=== PATIENT | female | born 1960 | race Caucasian/White ===

== ENCOUNTER → 2023-12-31 07:45 | Outpatient (BNVA) | payer MEDICARE, SELFPAY | PROVIDERS: Family Provider Specialist; PCP Physician Assistant; Referring Provider Physician Assistant; Visit Provider Specialist | DX: G35 Multiple sclerosis (principal) | CPT/HCPCS: 99204 ==

== ENCOUNTER 2025-05-12 06:34 | Emergency (ER) | payer MEDICARE, SELFPAY ==
[2025-05-12 06:36] VITALS: BP 164/80; PULSE 72; RESP 16; TEMP 36.6; O2SAT 95; BMI 25.8
--- OUTSIDE RECORDS SUMMARY | 2025-05-12 06:40 | XMS_ITS | Patient Health Record ---
Author Organization [facility] Address [address] [id number] Care Team Providers Care Building Service Worker Name Role Phone ANGUS MCFARLAND EDWARD Unavailable [phone] Alexx Orta D.O. Unavailable Unavailable Allergies Allergen (clinical drug ingredient) Drug/Non Drug Allergy documented on EMR Reaction Allergy Type Onset Date Status erythromycin ERYTHROMYCIN Unknown Drug Allergy A ctive azithromycin Zithromax Z-Long Unknown Drug Allergy Active Substance with sulfonamide structure and antibacterial mechanism of action (substance) Sulfa Antibiotics Unknown Drug Allergy Active Reason For Referral No Information Medications Medication SIG (Take, Route, Frequency, Duration) Notes Start Date End Date Status Folic Acid 1 MG 1 tablet Orally Once a day Active DULoxetine HCl 60 MG 1 capsule Orally On ce a day Active Bystolic 5 MG 1 tablet Orally Once a day Active Atorvastatin Calcium 20 MG 1 tablet Oral ly Once a day Active Vitamin D3 50 MCG (1999) 1 capsule Or ally Once a day Active traMADol HCl 50 MG 1 tablet as needed O rally Once a day Active oxyBUTYnin Chloride 5 MG 1 tablet Orally Twice a day Active Modafinil 200 MG 1 tablet in the morn ing Orally Once a day Active Lyrica 75 MG 1 capsule Orally Onc e a day Active Ibuprofen 800 MG 1 tablet with food o r milk as needed Orally Three times a day Active Social History Tobacco Use: Social History Observation Description Date Details (start date - stop date) Current Smoker NA - NA Household Question Answer Notes Marital status: active smoker Question Answer Notes Tobacco use: current smoker How many cigarettes a day do you smoke? 11-20 Alcohol Screen (Audit-C) Question Answer Notes Did you have a drink containing alcohol in the p ast year? No Points 0 Interpretation Negative Section Notes: Admin at [facility] [place] Lives alone Admin at [facility] [place] Lives alone Admin at [facility] [place] Lives alone Admin at [facility] [place] Lives alone Smoker No alcohol use Admin at [facility] [place] Lives alone Smoker No alcohol use Admin at [facility] [place] Lives alone Admin at [facility] [place] Lives alone Smoker Alcohol use none Admin at [facility] [place] Lives alone Smoker No alcohol use Admin at [facility] [place] Lives alone Smoker No alcohol use Admin at [facility] [place] Lives alone Smoker No alcohol use Admin at [facility] [place] Lives alone Smoker No alcohol use Admin at [facility] [place] Lives alone Smoker No alcohol use Admin at [facility] [place] Lives alone Smoker No alcohol use Admin at [facility] [place] Lives alone Smoker No alcohol use Admin at [facility] [place] Lives alone Smoker No alcohol use Admin at [facility] [place] Lives alone Smoker No alcohol use Admin at [facility] [place] Lives alone Smoker No alcohol use Admin at [facility] [place] Lives alone Smoker No alcohol use Problems Problem Type SNOMED Code ICD Code Onset Dates Problem Status W/U Status Risk Notes Problem Multiple sclerosis (27320334) Multiple sclerosis (G35) Active confirmed Problem Localized, primary osteoarthritis of the pelvic region and thigh (494275632) Unilateral primary osteoarthritis , left hip (M16.12) Active confirmed Problem Hypovolemia (finding) (056568783) Volume depletion (E86.9) Active confirmed Plan Of Treatment No Information Insurance Providers Payer Name Payer Address Payer Phone Subscriber Number Group Number Insured Name Patient Relationship to Insured Coverage Start Date Coverage End Date [facility] [address] [address] [place] [address] [id number] Misti Lenz Self - patient is the insured Copay Assist - [employer] [facility] [address] [place], AAKASH [phone] Misti Lenz Self - patient is the insured Medical (General) History Medical History History ICD Code Multiple sclerosis G35 Unilateral primary osteoarthritis, left hip M16.12 Surgical History Surgery Date(Month/Year) Left Wrist Break w/ metal insert 2014 Hospitalization History Reason Date(Month/Year) as seen above
--- OUTSIDE RECORDS SUMMARY | 2025-05-12 06:40 | XMS_ITS | Patient Health Record ---
Author Organization [facility] Address [address] [place] [address] Care Team Providers Care Pen Rider Name Role Phone Harshal Brown Primary Care Provider Allergies Allergen (clinical drug ingredient) Drug/Non Drug Allergy documented on EMR Reaction Allergy Type Onset Date Status Substance with sulfonamide structure and antibacterial mechanism of action (substance) Sulfa (uncoded) hives Allergy Active azithromycin Z-Long (uncoded) unknown Allergy A ctive azithromycin Azithromycin elongated QT interval Drug Allergy Active Reason For Referral No Information Medications Medication SIG (Take, Route, Frequency, Duration) Notes Start Date End Date Status Multivitamin Adults 50+ - Orally Active Tecfidera 240 MG 1 capsule Orally Twi ce a day Active buPROPion HCl ER (XL) 300 MG 1 tablet in the morning Orally Once a day; Duration: 90 days Active Lyrica 75 MG 1 capsule in the afternoon Orally Twice a day; Duration: 90 days Active Atorvastatin Calcium 20 MG 1 tablet Orally Once a day; Duration: 90 days 10/21/2018 Active Celecoxib 200 MG 1 capsule with food Orally Once a day Not-Taking L-Lysine HCl 1000 MG 1 tablet Orally Onc e a day Not-Taking Modafinil 100 MG 1 tablet in the morn ing Orally Once a day Active Cymbalta 60 MG 1 capsule Orally Onc e a day; Duration: 30 day(s) 10/21/2018 Active Cymbalta 30 MG 1 capsule daily for initial 7 days of therapy Orally Once a day; Duration: 7 days 10/21/2018 Active Immunizations Vaccine Route Administration Date Status Comme nts Prevnar 13 IM Intramuscular 10/21/2018 Administered [id number] Social History Tobacco Use: Social History Observation Description Date Details (start date - stop date) Current Smoker NA - NA Alcohol Screening: Question Answer Notes Did you have a drink contain ing alcohol in the past year? Yes How often did you have a dri nk containing alcohol in the past year? Monthly or less (1 point) How many drinks did you have on a typical day when you were drinking in the past year? 1 or 2 (0 points) How often did you have six o r more drinks on one occasion in the past year? Never (0 points) Points 1 Interpretation Negative Tobacco: Question Answer Notes Are you a: current smoker How often do you smoke cigarettes? (current smok er) every day Problems Problem Type SNOMED Code ICD Code Onset Dates Problem Status W/U Status Risk Notes Problem Depression (720880980) Depression (F32.9) Active confirmed Problem Hypertension (21702482) Hypertension (I10) Active confirmed Problem Vitamin D deficiency (09986235) Vitamin D deficiency (E55.9) Active confirmed Problem Multiple sclerosis (47812882) Multiple sclerosis (G35) Active confirmed Problem Obesity (632942284) Obesity (BMI 30-39.9) (E66.9) Active confirmed Problem Dyslipidemia (659905759) Dyslipidemia (E78.5) Active confirmed Problem Lesion of vulva (463748768) Vulvar lesion (N90.89) Active confirmed Problem Cervicovaginal cytology: Low grade squamous intraepithelial lesion (677157325) Low grade squamous intraepithelial lesion on cytologic smear of cervix (LGSIL) (R87.612) Active confirmed Problem Human papillomavirus infection (482880956) HPV (human papilloma virus) infection (B97.7) Active confirmed Problem Anogenital human papilloma virus infection (166473444) HPV (human papilloma virus) anogenital infection (A63.0) Active confirmed Problem Tobacco user (717564487) Tobacco dependence due to cigarettes (F17.210) Active confirmed Problem Osteoarthritis of hip (579135903) Osteoarthritis of hip, unspecified laterality, unspecified osteoarthritis type (M16.9) Active confirmed Problem Panic disorder (154118890) Severe anxiety with panic (F41.0) Active confirmed Plan Of Treatment No Information Insurance Providers Payer Name Payer Address Payer Phone Subscriber Number Group Number Insured Name Patient Relationship to Insured Coverage Start Date Coverage End Date [employer] [facility] [address] [address] [place] [phone] [id number] Misti Lenz Self - patient is the insured 9 Medical (General) History Medical History History ICD Code Multiple sclerosis G35 Hypertension I10 Depression F32.9 Neck pain Sciatica Lt Hip pain Broken bones Surgical History Surgery Date(Month/Year) Left wrist 2014 Hospitalization History Reason Date(Month/Year) Rhett Gross - IV Steroids for MS 8
--- OUTSIDE RECORDS SUMMARY | 2025-05-12 06:41 | XMS_ITS | Patient Health Record ---
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 Role Phone CLARA HENAO Primary Care Provider Unavaila Clara Cross Unavailable [phone] JermainJake Unavailable [phone] Angelia Graf Unavailable Allergies Allergen (clinical drug ingredient) Drug/Non Drug Allergy documented on EMR Reaction Allergy Type Onset Date Status erythromycin Erythromycin Unknown Drug Allergy A ctive Substance with sulfonamide structure and antibacterial mechanism of action (substance) Sulfa Antibiotics Unknown Drug Allergy Active Results Component Value Reference Range Flag Notes Lumbosacral Spine Comp AP/La t w/ Obl-[id number] Reviewed date:02/08/2025 10:25:25 AM Interpretation: Performing Lab: Notes/Report: [id number]=iSite IH Lumbosacral Spine AP/Lat - [id number] Reviewed date:09/17/2024 10:07:59 AM Interpretation: Performing Lab: Notes/Report: The report for this exam was dictated at [facility] . FINAL REPORT Hip 2-3 View Uni Left-[id number] Reviewed date:09/17/2024 10:07:59 AM Interpretation: Performing Lab: Notes/Report: The report for this exam was dictated at [facility] . FINAL REPORT Read The report for this exam was dictated at [facility] . IH Lumbosacral Spine AP/Lat - 33802 Reviewed date:09/17/2024 10:08:22 AM Interpretation: Performing Lab: Notes/Report: [id number]&[email or web address]=iSite MRI Lumbar Spine w/o Cont-72 148 Reviewed date:11/05/2024 08:00:09 AM Interpretation: Performing Lab: Notes/Report: See Below For Report MRI Lumbar Spine w/o Cont Diagnosis Description: Spondylolisthesis, lumbar region Read See Below For Report Schedule Confirmation Reviewed date:09/30/2024 04:58:30 PM Interpretation: Performing Lab: Notes/Report: MRI Lumbar Spine w/o Cont IH Lumbosacral Spine Comp AP /Lat w/ Obl - [id number] Reviewed date:02/01/2025 07:30:40 AM Interpretation: Performing Lab: Notes/Report: See Below For Report Lumbosacral Spine Comp AP/Lat w/ Obl Urine Confirmation Panel (in strument) - [id number] Reviewed date:12/27/2024 02:44:53 PM Interpretation: Performing Lab: Notes/Report: 6-Acetylmorphine 0 <6 ng/mL N This sun t was developed and its performance characteristics determined by [facility]. It has not been cleared or approved by the U.S. Food and Drug Administration. 7-Aminoclonazepam 0 <60 ng/mL N This te st was developed and its performance characteristics determined by [facility]. It has not been cleared or approved by the U.S. Food and Drug Administration. Alprazolam 0 <60 ng/mL N This test was developed and its performance characteristics determined by [facility]. It has not been cleared or approved by the U.S. Food and Drug Administration. Amphetamine 0 <75 ng/mL N This test was developed and its performance characteristics determined by [facility]. It has not been cleared or approved by the U.S. Food and Drug Administration. aOH-Alprazolam 0 <60 ng/mL N This test was developed and its performance characteristics determined by [facility]. It has not been cleared or approved by the U.S. Food and Drug Administration. Buprenorphine 0.0 <7.5 ng/mL N This test w as developed and its performance characteristics determined by [facility]. It has not been cleared or approved by the U.S. Food and Drug Administration. Norbuprenorphine 0.0 <37.5 ng/mL N This te st was developed and its performance characteristics determined by [facility]. It has not been cleared or approved by the U.S. Food and Drug Administration. Carisoprodol 0 <75 ng/mL N This test wa s developed and its performance characteristics determined by [facility]. It has not been cleared or approved by the U.S. Food and Drug Administration. Codeine 0 <75 ng/mL N This test was developed and its performance characteristics determined by [facility]. It has not been cleared or approved by the U.S. Food and Drug Administration. EDDP 0 <75 ng/mL N This test was developed and its performance characteristics determined by [facility]. It has not been cleared or approved by the U.S. Food and Drug Administration. Fentanyl 0 <6 ng/mL N This test was developed and its performance characteristics determined by [facility]. It has not been cleared or approved by the U.S. Food and Drug Administration. Hydrocodone 68 <75 ng/mL N This test was developed and its performance characteristics determined by [facility]. It has not been cleared or approved by the U.S. Food and Drug Administration. Hydromorphone 75 <75 ng/mL H This test w as developed and its performance characteristics determined by [facility]. It has not been cleared or approved by the U.S. Food and Drug Administration. Lorazepam 0 <60 ng/mL N This test was developed and its performance characteristics determined by [facility]. It has not been cleared or approved by the U.S. Food and Drug Administration. MDMA 0 <75 ng/mL N This test was developed and its performance characteristics determined by [facility]. It has not been cleared or approved by the U.S. Food and Drug Administration. Meperidine 0.0 <37.5 ng/mL N This test was developed and its performance characteristics determined by [facility]. It has not been cleared or approved by the U.S. Food and Drug Administration. Meprobamate 0 <75 ng/mL N This test was developed and its performance characteristics determined by [facility]. It has not been cleared or approved by the U.S. Food and Drug Administration. Methamphetamine 0 <75 ng/mL N This test was developed and its performance characteristics determined by [facility]. It has not been cleared or approved by the U.S. Food and Drug Administration. Methadone 3 <75 ng/mL N This test was developed and its performance characteristics determined by [facility]. It has not been cleared or approved by the U.S. Food and Drug Administration. Morphine 0 <75 ng/mL N This test was developed and its performance characteristics determined by [facility]. It has not been cleared or approved by the U.S. Food and Drug Administration. Nordiazepam 0 <60 ng/mL N This test was developed and its performance characteristics determined by [facility]. It has not been cleared or approved by the U.S. Food and Drug Administration. Norfentanyl 0 <6 ng/mL N This test was developed and its performance characteristics determined by [facility]. It has not been cleared or approved by the U.S. Food and Drug Administration. Normeperidine 0.0 <37.5 ng/mL N This test was developed and its performance characteristics determined by [facility]. It has not been cleared or approved by the U.S. Food and Drug Administration. O-desmethyltramadol >5000 <75 ng/mL > This test was developed and its performance characteristics determined by [facility]. It has not been cleared or approved by the U.S. Food and Drug Administration. Oxazepam 0 <60 ng/mL N This test was developed and its performance characteristics determined by [facility]. It has not been cleared or approved by the U.S. Food and Drug Administration. Oxycodone 0.0 <37.5 ng/mL N This test was developed and its performance characteristics determined by [facility]. It has not been cleared or approved by the U.S. Food and Drug Administration. Oxymorphone 0 <75 ng/mL N This test was developed and its performance characteristics determined by [facility]. It has not been cleared or approved by the U.S. Food and Drug Administration. Phencyclidine 0.0 <7.5 ng/mL N This test w as developed and its performance characteristics determined by [facility]. It has not been cleared or approved by the U.S. Food and Drug Administration. Tapentadol 0.0 <37.5 ng/mL N This test was developed and its performance characteristics determined by [facility]. It has not been cleared or approved by the U.S. Food and Drug Administration. Temazepam 0 <60 ng/mL N This test was developed and its performance characteristics determined by [facility]. It has not been cleared or approved by the U.S. Food and Drug Administration. Tramadol >5000 <75 ng/mL > This test was developed and its performance characteristics determined by [facility]. It has not been cleared or approved by the U.S. Food and Drug Administration. Norhydrocodone 192 <75 ng/mL H This test was developed and its performance characteristics determined by [facility]. It has not been cleared or approved by the U.S. Food and Drug Administration. Noroxycodone 0 <38 ng/mL N This test wa s developed and its performance characteristics determined by [facility]. It has not been cleared or approved by the U.S. Food and Drug Administration. Pregabalin 0 <225 ng/mL N This test was developed and its performance characteristics determined by [facility]. It has not been cleared or approved by the U.S. Food and Drug Administration. Gabapentin >46497 <225 ng/mL > This test was developed and its performance characteristics determined by [facility]. It has not been cleared or approved by the U.S. Food and Drug Administration. Benzoylecgonine 0.0 <37.5 ng/mL N This sun t was developed and its performance characteristics determined by [facility]. It has not been cleared or approved by the U.S. Food and Drug Administration. 4-Hydroxy Xylazine 7 <25 ng/mL N This t est was developed and its performance characteristics determined by [facility]. It has not been cleared or approved by the U.S. Food and Drug Administration. Urine Drug Screen (cup read) - 52763 Reviewed date:12/21/2024 09:49:59 AM Interpretation:Positive Performing Lab: Notes/Report: Positive OPI + MRI Lumbar Spine w/o Cont-72 148 Reviewed date:11/05/2024 08:02:07 AM Interpretation: Performing Lab: Notes/Report: [id number]=iSite CRP 79799 Reviewed date:09/17/2024 10:13:03 AM Interpretation: Performing Lab: Notes/Report: Diagnosis Description: Pain in left hip CRP <.50 .40-1.00 MG/DL Sedimentation Rate 99177 Reviewed date:09/17/2024 10:13:11 AM Interpretation: Performing Lab: Notes/Report: Diagnosis Description: Pain in left hip Sed Rate 3 0-30 MM/HR CBC w\ Auto Diff 93919 Reviewed date:09/17/2024 10:13:19 AM Interpretation: Performing Lab: Notes/Report: Diagnosis Description: Pain in left hip WBC 4.1 4.5-11.0 X10'3 LOW RBC 4.82 4.00-5.20 X10'6 Hgb 13.6 12.0-16.0 G/DL Hct 40.8 36.0-46.0 % MCV 84.6 80.0-100.0 FL MCH 28.2 27.0-31.0 PG MCHC 33.3 31.0-37.0 G/DL Platelet 238 150-400 X10'3 RDW-SD 40.4 35.0-49.0 FL RDW-CV 13.1 12.2-15.6 % MPV 8.9 9.2-12.0 FL LOW Neutro Auto% 68.8 40.0-70.0 % Lymph Auto% 18.8 22.0-44.0 % LOW Waller Auto% 7.0 3.0-7.0 % Eos Auto% 3.9 2.0-4.0 % Baso Auto% 1.0 0.0-1.0 % Imm Gran% .5 .0-.4 % HI Neutro Abs 2.85 .80-7.70 Absolute Neutrophil Count 2850 NA Lymph Abs .78 .10-4.10 Waller Abs .29 .20-1.00 Eos Abs .16 .00-.40 Baso Abs .04 .00-.20 Imm Gran Abs .02 .00-.10 NRBC# .00 .00-.20 X10'3 NRBC% .00 .00-.20 /100 intact WBC's Hip 2-3 View Uni Left-[id number] Reviewed date:06/21/2024 10:47:25 AM Interpretation: Performing Lab: Notes/Report: [id number]=iSite Tox Results Reviewed date:12/27/2024 02:49:35 PM Interpretation: Performing Lab: Notes/Report: Hip 2-3 View Uni Left-[id number] Reviewed date:06/21/2024 10:47:18 AM Interpretation: Performing Lab: Notes/Report: The report for this exam was dictated at [facility] . FINAL REPORT Read The report for this exam was dictated at [facility] . Schedule Confirmation Reviewed date:11/05/2024 08:00:16 AM Interpretation: Performing Lab: Notes/Report: MRI Lumbar Spine w/o Cont Hip 2-3 View Uni Left-[id number] Reviewed date:09/17/2024 10:08:41 AM Interpretation: Performing Lab: Notes/Report: [id number]=iSite Schedule Confirmation Reviewed date:09/27/2024 09:04:19 AM Interpretation: Performing Lab: Notes/Report: MRI Lumbar Spine w/o Cont Schedule Confirmation Reviewed date:09/24/2024 11:36:49 AM Interpretation: Performing Lab: Notes/Report: MRI Lumbar Spine w/o Cont Lipid Panel Reflex DLDL 8000 4, 83929 Reviewed date:11/22/2024 02:06:38 PM Interpretation: Performing Lab: Notes/Report: Diagnosis Description: Essential (primary) hypertension Trig 87 NA Classification Guidelines:Triglyceride s Very high >=500 5-9 yr 32-105 10-14 yr 37-131 0-4 yr 22-99 Children: Female Desirable <150 15-19 yr 39-132 High 200-499 0-4 yr 34-112 15-19 yr 37-148 Borderline High 150-199 Adults: >20yrs Children: Male 5-9 yr 30-101 10-14 yr 32-125 Chol 247 <=200 MG/DL HI HDL 75 39-96 MG/DL 10-14y 37-74 15-19y 35-74 Female: Reference Ranges:HDL Male: 15-19y 30-63 >=20y 40-59 5-9y 36-73 5-9y 38-75 10-14y 37-70 >=20y 40-59 CH/HDL 3.3 0.0-4.9 RATIO LDL 155 0-130 MG/DL HI LDL result is inaccurate , if Trig is >400 mg/dl. See DLDL result. Reason For Referral Reason Epidural steroid inj ection Diagnosis 1 Spinal stenosis, lum bar region with neurogenic claudication (M48.062) Referring Provider First Name Jake Referring Provider Last Name Jermain Referring Provider Speciality Orthopedic Surgery Referred Organization [facility] Referred Provider Nicki Graf Referred Address [address],[facility],[place],[address],[place] General Notes Nicolasa Yu 2024 09:30:35 AM >Order entered, Nicolasa Yu 11/08/2024 03:06:57 PM >ATC VM left. , Order approved, Nicolasa Yu 11/19/2024 09:22:04 AM >ATS , VM LEFT., Nicolasa Yu 12/10/2024 02:53:28 PM >asked for OV before injection. Scheduled Referral Priority Routine Reason Epidural steroid inj ection Diagnosis 1 Spinal stenosis, lum bar region with neurogenic claudication (M48.062) Referral Organization [facility] Referring Provider First Name Jake Referring Provider Last Name Jermain Referring Provider Speciality Orthopedic Surgery Referred Provider Nicki Graf Referral Priority Routine Reason Pt for LS radiculopa thy evaluate and treat Diagnosis 1 Lumbosacral radiculo haven (M54.17) Referral Organization [facility] Referring Provider First Name Angelia Referring Provider Last Name Payal Perez Referring Provider Speciality Pain Medic ine Referred Provider [facility] [place] Referral Priority Routine Medications Medication SIG (Take, Route, Frequency, Duration) Notes Start Date End Date Status traMADol HCl 50 MG Tablet 1 tablet as ne eded Orally every 8 hours; Duration: 30 days 04/18/2025 Active Ibuprofen 200 MG Tablet 1 tablet with fo od or milk as needed Orally Three times a day Active Multi Vitamin Unknow n Lisinopril 40 MG Tablet TAKE 1 TABLET BY MOUTH DAILY; Duration: 90 Active Spironolactone 25 MG Tablet 1 tablet Orally Unknown - Active Dimethyl Fumarate 240 MG Capsule Delayed Release 1 capsule Orally Twice a day Active Vitamin D 50 MCG (1999 UT) Tablet 1 tablet Orally Once a day Unknown LORazepam 2 MG Tablet Take 1 tablet 1 ho ur before MRI scan Orally Once a day; Duration: 1 days 09/14/2024 Active Vitamin B Complex Un known Ferrous Gluconate 324 (38 Fe) MG Tablet 1 tablet Orally Three times a Week Active Gabapentin 300 MG Capsule 1 capsule Oral ly Once a day; Duration: 30 days 11/10/2024 Active DULoxetine HCl 30 MG Capsule Delayed Release Particles 1 capsule Orally Once a day; Duration: 90 days Active Famotidine 20 MG Tablet 1 tablet at bedt mitesh as needed Orally Once a day Active Magnesium Unknown Social History Tobacco Use: Social History Observation Description Date Details (start date - stop date) Current Smoker NA - NA Social History Depression Screening Social Info Question Answer Notes PHQ-9 Little interest or pleasure in doing thin gs Several days Feeling down, depressed, or hopeless Several day s Trouble falling or staying asleep, or sleeping t oo much Not at all Feeling tired or having little energy Several da ys Poor appetite or overeating Not at all Feeling bad about yourself, or that you are a failure, or have let yourself or your family down Not at all Trouble concentrating on thi ngs, such as reading the newspaper or watching television Not at all Moving or speaking so slowly that other people could have noticed. Or the opposite ? being so fidgety or restless that you have been moving around a lot more than usual Not at all Thoughts that you would be b vitaliy off , or of hurting yourself in some way Not at all Total Score 0 Comprehensive Health Assessm ent Social Info Question Answer Notes *Social Determinants of Health Has lack of transportation kept you from medical appointments, meetings, work or from getting things needed for daily living? No Do you feel physically and emotionally safe wher e you currently live? Yes Are you worried about losing your housing? No Recently, have you worried t hat your food would run out before you got money to buy more? No Drug/Alcohol: Social Info Question Answer Notes AUDIT-C (Standard) Did you have a drink containing alcohol in the past year? No Points 0 Interpretation Negative Tobacco Use: Social Info Question Answer Notes Tobacco Control (Standard) Tobacco use: Current smoker How often do you smoke cigarettes? Every day How many cigarettes a day do you smoke? 11-20 How soon after you wake up do you smoke your first cigarette? 6-30 minutes Are you interested in quitting? Not ready to quit Section Notes: 12/02/23 PHQ9 12/02/23 PHQ9 12/02/23 PHQ9 11/10/24 PHQ9 12/02/23 PHQ9 11/10/24 PHQ9 12/02/23 PHQ9 11/10/24 PHQ9 12/02/23 PHQ9 11/10/24 PHQ9 12/02/23 PHQ9 12/02/23 PHQ9 12/02/23 PHQ9 12/02/23 PHQ9 12/02/23 PHQ9 Problems Problem Type SNOMED Code ICD Code Onset Dates Problem Status W/U Status Risk Notes Problem Chronic pain syndrome (660015513) Chronic pain syndrome (G89.4) Active confirmed Problem Acquired spondylolisthesis (618110432) Spondylolisthesis, lumbar region (M43.16) Active confirmed Problem Neurogenic claudication (511786994) Spinal stenosis, lumbar region with neurogenic claudication (M48.062) Active confirmed Problem Neuropathy (890615302) Neuropathy (G62.9) Active confirmed Problem Localized, primary osteoarthritis of the pelvic region and thigh (309851104) Primary osteoarthritis of left hip (M16.12) Active confirmed Problem Vitamin D deficiency (67427507) Vitamin D deficiency (E55.9) Active confirmed Problem Arthritis of left hip (1411155177698226) Arthritis of left hip (M16.12) Active confirmed Problem Lumbosacral spondylosis without myelopathy (28436427) Spondylosis of lumbosacral region without myelopathy or radiculopathy (M47.817) Active confirmed Problem Depression (725249921) Depression (F32.9) Active confirmed Problem Myalgia (92653126) Myalgia (M79.10) Active conf irmed Problem Nicotine dependence (46938087) Nicotine dependence (F17.200) Active confirmed Problem History of left hip replacement (5310572224058449) 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) Active confirmed Problem Spondylolisthesis (613427577) Spondylolisthesis (M43.10) Active confirmed Problem Hypertension (85917825) Hypertension (I10) Active confirmed Problem Lumbosacral radiculopathy (0620634) Lumbosacral radiculopathy (M54.17) Active confirmed Problem Multiple sclerosis (17142576) MS (multiple sclerosis) (G35) Active confirmed Problem Lumbar radiculopathy (043572287) Chronic lumbar radiculopathy (M54.16) Active confirmed Problem Acquired spondylolisthesis (801944013) Anterolisthesis of lumbar spine (M43.16) Active confirmed Problem S/P total left h ip arthroplasty (Z96.642) Active confirmed Vital Signs Heart Rate 84 /min 04/18/2025 Temperature 98.1 degrees Fahrenheit 04/18/2025 Respiratory Rate 20 /min 04/18/2025 Blood pressure diastolic 80 mm Hg 04/18/2025 Oximetry 97 % 04/18/2025 Height-cm 167.64 cm 04/18/2025 Weight-kg 72.58 kg 04/18/2025 Height 66 in 04/18/2025 Blood pressure systolic 138 mm Hg 04/18/2025 Weight 160 lbs 04/18/2025 BMI 25.82 kg/m2 04/18/2025 Procedures Procedure Date Ordered Date Performed Result Body Sit e REMOVE IMPACTED EAR WAX UNI 04/18/2025 04/18/2025 N/A Encounters Encounter Location Date Provider Diagnosis [facility] [address] [place] [address] 06/17/2024 Jake Aly Status post total replacement of left hip Z96.642 [facility] [place] [address] [place] [address] 02/15/2025 Angelia walsh Chronic pain syndrome G89.4 ; Lumbosacral radiculopathy M54.17 ; Myalgia M79.10 ; Neuropathy G62.9 ; Anterolisthesis of lumbar spine M43.16 ; Spondylolisthesis M43.10 ; Encounter for long-term current use of medication Z79.899 ; Spondylosis of lumbosacral region without myelopathy or radiculopathy M47.817 and Depression screen Z13.31 [facility] [address] [place] [address] 11/04/2024 Jake Roachox Spinal stenosis, lum bar region with neurogenic claudication M48.062 [facility] [place] [address] [place] [address] 12/21/2024 Angelia walsh Chronic pain syndrome G89.4 ; Lumbosacral radiculopathy M54.17 ; Myalgia M79.10 ; Anterolisthesis of lumbar spine M43.16 ; Spondylolisthesis M43.10 ; Neuropathy G62.9 ; Encounter for long-term current use of medication Z79.899 and Spondylosis of lumbosacral region without myelopathy or radiculopathy M47.817 [facility] [address] [facility] [address] [place] [address] 11/10/2024 [facility] Chronic lumbar radiculopathy M54.16 ; Hypertension I10 ; MS (multiple sclerosis) G35 and Depression screening Z13.[address] [place] [address] 09/14/2024 Jake Aly Left hip pain M25.55 2 and Spondylolisthesis, lumbar region M43.16 [facility] [address] [facility] [address] [place] [address] 04/18/2025 [facility] Dental infection K04.7 ; Impacted cerumen of left ear H61.22 and Chronic lumbar radiculopathy M54.16 [facility] [address] [facility] [address] [place] [address] 02/10/2025 [facility] [address] [place] [address] 12/30/2024 Angelia Gooden ce [facility] [address] [place] [address] 12/22/2024 [facility] [address] [place] [address] 11/05/2024 Angelia Gooden ce Spinal stenosis, lumbar region with neurogenic claudication M48.[address] [place] [address] 10/26/2024 Jake Aly [facility] [address] [place] [address] 09/28/2024 Jake Aly [facility] [address] [place] [address] 09/24/2024 Jake Aly Assessments Encounter Date Diagnosis (ICD Code) Assessment Notes Treatment Notes Treatment Clinical Notes Section Notes 09/14/2024 Spondylolisthesis, lumbar region (ICD-10 - M43.16) MRI scan lumbar spine for further evaluation. 09/14/2024 Left hip pain (ICD-10 - M25.552) This individual has had a total hip replacement of which looks good by x-ray. I do not see any evidence of a fracture or dislocation etc. I am going to go ahead and get an inflammatory screen on her. Furthermore I am going to get an MRI scan of her lumbar spine because I think this may be the source of her pain. 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 She has a history of multiple sclerosis and had an acute radiculopathy affecting her left L4/5 nerve roots. She's gone through extensive physical therapy for core stabilization. She has complete resolution of her radiculopathy pain. She does have right sided SI mediated pain based off of the examination today. She's not interested in SI joint injections as they have not been helpful for her in the past. We reviewed her 7 mm anteriolisthesis of L4 on L5. No red flags on examination today. Strict ER precautions have been given. We trialed Lyrica 15 mg BID, but she did not notice significant benefit and had noticed some sedation that was uncomfortable during the morning. I'll see her back in six months. At that time, we can consider if we want to do an L4/5 interlaminar epidural steroid injection or a targeted L4/5 TFESI bilaterally. We'll provide her with an intramuscular Depo Medrol injection today. She has no fevers, chills, or been on antibiotics in the last three days. 02/15/2025 Lumbosacral radiculopathy (ICD-10 - M54.17) 04/18/2025 Dental infection (ICD-10 - K04.7) Encouraged to make dental apt, take medication as directed. Questions asked and answered; discharged to home. 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 She has a history of multiple sclerosis and had an acute radiculopathy affecting her left L4/5 nerve roots. She's been doing better. We'll start off with physical therapy with nerve flossing for lumbosacral radiculopathy. She does have a five mm anteriolisthesis of L4 on L5. We'll obtain flexion/extension X-rays to evaluate this as she might have some dynamic instability. There's no red flag symptoms on examination today. Strict ER precautions were given. We'll trial Lyrica 50 mg BID. She's had this before, and it was beneficial for her neuropathy. I prescribed her a Medrol dose pack if she has reaggravation of her worst symptoms in terms of her lumbosacral radiculopathy. I'll see her back in 8 weeks and if she's not improved at that time, we can recosnider her L4/5 interlaminar epidural steroid inejction or a left sided L4/5 TFESI. 04/18/2025 Impacted cerumen of left ear (ICD-10 - H61.22) 11/10/2024 Chronic lumbar radiculopathy (ICD-10 - M54.16) 11/05/2024 Spinal stenosis, lumbar region with neurogenic claudication (ICD-10 - M48.062) 11/04/2024 Spinal stenosis, lumbar region with neurogenic claudication (ICD-10 - M48.062) This individual has documented spinal stenosis from spondylolisthesis at L4-5. It is bilateral. We talked about treatment options. She would like to try an epidural steroid injection to see if it would help. I think this is reasonable. I am going to recheck in 2 months. A referral for this will be made. Furthermore I am going to renew her tramadol. This individual's prescription was just filled by her family physician yesterday on the . We will cancel the prescription for tramadol from us. 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 We will recheck in 6 months with x-rays. 12/21/2024 Lumbosacral radiculopathy (ICD-10 - M54.17) 11/10/2024 Hypertension (ICD-10 - I10) 11/10/2024 MS (multiple sclerosis) (ICD-10 - G35) Keep apts with Dr. Biswas as scheduled. 12/21/2024 Myalgia (ICD-10 - M79.10) 02/15/2025 Myalgia (ICD-10 - M79.10) 02/15/2025 Neuropathy (ICD-10 - G62.9) 04/18/2025 Chronic lumbar radiculopathy (ICD-10 - M54.16) 12/21/2024 Anterolisthesis of lumbar spine (ICD-10 - M43.16) 11/10/2024 Depression screening (ICD-10 - Z13.31) 12/21/2024 Spondylolisthesis (ICD-10 - M43.10) 02/15/2025 Anterolisthesis of lumbar spine (ICD-10 - M43.16) 02/15/2025 Spondylolisthesis (ICD-10 - M43.10) 12/21/2024 Neuropathy (ICD-10 - G62.9) 02/15/2025 Encounter for long-term current use of medication (ICD-10 - Z79.899) 12/21/2024 Encounter for long-term current use of medication (ICD-10 - Z79.899) RECOMMEND URINE TESTING TODAY Urine drug screening will be performed today to monitor compliance with opioid therapy or to serve as a baseline screen for a patient who may be a candidate for opioid therapy in the future, pending UDS results. We will monitor with in-office testing (rapid testing) today and review the results prior to dispensing prescription. All positive results will be sent for quantitative analysis to ensure accuracy and quantify amounts. Any expected positive results that return negative will also be sent for quantitative analysis. Any questionable read or any medication we cannot test for in the office confidently will be sent for quantitative analysis, as well. Patient has been made aware of this policy and agrees to abide by our urine testing policy. 02/15/2025 Spondylosis of lumbosacral region without myelopathy or radiculopathy (ICD-10 - M47.817) 12/21/2024 Spondylosis of lumbosacral region without myelopathy or radiculopathy (ICD-10 - M47.817) 02/15/2025 Depression screen (ICD-10 - Z13.31) 11/10/2024 Other Venipuncture performed. Left arm. One attempt. Pt tolerated well, bleeding controlled with light dressing.Chastity Perez DATA PROCESSING SUPERVISOR 12/21/2024 Other Meghan Navas am scribing for Dr. Islas. I, Dr. Islas, personally performed the services described in this documentation, as scribed by Meghan Blackwell, and it is both accurate and complete. 02/15/2025 Other Meghan Navas am scribing for Dr. Islas. I, Dr. Islas, personally performed the services described in this documentation, as scribed by Meghan Blackwell, and it is both accurate and complete. Plan Of Treatment Pending Test Test Name Order Date X-RAY EXAM HIP UNI 2-3 VIEW 03/23/2024 X-RAY EXAM HIP UNI 2-3 VIEW 09/14/2024 Uni Hip, Pelvis 1V 06/17/2024 Electrocardiogram 12 Lead Tracing-[id number] 02/16/2024 Next Appt Details Provider Name:Paulette Dee goodrich, 08/18/2025 10:00:00 AM, [address] [place], [address], Insurance Providers Payer Name Payer Address Payer Phone Subscriber Number Group Number Insured Name Patient Relationship to Insured Coverage Start Date Coverage End Date [place] [address] [address] [place] [address] [id number] Misti Lenz Self - patient is the insured Medications Administered Medication Instructions Date of Administration Dosage Notes DEPO-Medrol 02/15/2025 40 mg [facility] [id number] Medical (General) History Medical History History ICD Code multiple sclerosis hypertension chronic hip pain lower backpain depression Surgical History Surgery Date(Month/Year) left wrist surgery total hip arthroplasty, left 03/01/2024 Hospitalization History Reason Date(Month/Year) Infusion, [place] 2018
--- OUTSIDE RECORDS SUMMARY | 2025-05-12 06:41 | XMS_ITS | Patient Health Record ---
Author Organization [facility] Address [address] [place] [address] Care Team Providers Care Multimedia Engineer Name Role Phone Alberto Brush PA-C Primary Care Provider ALBERTO Lang Unavailable [phone] Donell FLOREZ, PhD, Alberto Unavailable Unavail able Allergies Allergen (clinical drug ingredient) Drug/Non Drug Allergy documented on EMR Reaction Allergy Type Onset Date Status erythromycin Erythromycin Unknown Drug Allergy A ctive azithromycin Azithromycin Unknown Drug Allergy A ctive Substance with sulfonamide structure and antibacterial mechanism of action (substance) Sulfa Antibiotics Unknown Drug Allergy Active Reason For Referral No Information Medications Medication SIG (Take, Route, Frequency, Duration) Notes Start Date End Date Status Atorvastatin Calcium 20 MG Oral; Duration: 90 Active Modafinil 100 MG 1 tablet in the morn ing Orally Once a day Active DULoxetine HCl 60 MG Oral; Duration: 90 Active Chantix Starting Month Long 0.5 MG X 11 & 1 MG X 42 Oral; Duration: 53 Active Bystolic 5 MG Oral; Duration: 90 Active Plan Of Treatment No Information Insurance Providers Payer Name Payer Address Payer Phone Subscriber Number Group Number Insured Name Patient Relationship to Insured Coverage Start Date Coverage [place] [address] [address] [address] [place] [address] [phone] [id number] DelfinMisti escobar Self - patient is the insured [facility] [employer] [address] [address] [place] [address] [id number] Delfin Misti Self - patient is the insured Medical (General) History Medical History History ICD Code Chronic back pain Autoimmune disorder Neuorological disorder Multiple sclerosis Hypercholesterolemia Depression Surgical History Surgery Date(Month/Year) Left wrist fracture/[facility] 2014 [place]
[2025-05-12 06:56] VITALS: BP 164/80; O2SAT 97
[2025-05-12 07:04] LABS: Hematocrit 43.4 % (36-47); Hemoglobin 14.30 g/dL (11.27-16.99); Mean Corpuscular HGB Conc 32.9 g/dL (30-55); Mean Corpuscular Hemoglobin 29.0 pg (27-33); Mean Corpuscular Volume 88.0 fl (85-98); Nucleated Red Blood Cells % 0 %; Platelet Count 258 10^3/cmm (157-399); Red Blood Count 4.93 10^6/uL (3.85-5.65); White Blood Count 8.58 10^3/uL (3.29-11.43)
--- NOTE | 2025-05-12 07:10 | ED_ITS ---
HPI - Abdominal Pain 2 General: Chief Complaint: Abdominal Pain Stated Complaint: RIGHT FLANK PAIN/ N/V Time Seen by Provider: 05/12/25 06:44 History of Present Illness: 66-year-old female presents emergency ro om right-sided flank pain with nausea difficulty urinating. She rates her pain at 3 out of 10 she is brought in by EMS. Denies any fever. Symptoms began around 1 AM this morning she denies chest pain. No diarrhea no hematochezia melena or hematemesis. Associated Symptoms: Denies chills, dysuria and fever(s) Related Data Home Medications ?Medication ?Instructions ?Recorded ?Confirmed cholecalciferol (vitamin D3) 250 250 mcg PO DAILY 12/1005/12/25 mcg (10,000 unit) capsule lisinopril 40 mg tablet 40 mg PO DAILY 12/31/2310/05 [id number] ac 400 1 tab PO DAILY 05/12/2510/05 mcg-calcium carb 500 mg-vit K1 20 mcg tablet tramadol 50 mg tablet 50 mg PO Q8H PRN Pain 05/12/25 Allergies Allergy/AdvReac Type Severity Reaction Status Date / Time No Known Allergies Allergy Unverified 12/31/23 07:55 Review of Systems 2 Const: Denies: fever(s) or chills Card: Denies: chest pain Resp: Denies: dyspnea GI: Denies: abdominal pain : Reports: flank pain and difficulty voiding; Denies: dysuria, urinary frequency or urinary urgency Musc: Denies: neck pain or back pain Skin/Breast: Denies: rash PFSH ED 2 PFSH: Social History Smoking and tobacco/nicotine status: current every day tobacco/nicotine user (about a pack a day) Physical Exam 2 Const: GENERAL APPEARANCE: cooperative ORIENTATION/CONSCIOUSNESS: Yes awake, Yes oriented to person, Yes oriented to place and Yes oriented to time HENMT: COMMON NORMALS: normocephalic, atraumatic and hearing grossly normal bilaterally HEAD & SCALP: normocephalic and atraumatic Resp: COMMON NORMALS: normal respiratory effort, No retractions, No use of accessory muscles and clear to auscultation bilaterally AUSCULTATION: clear to auscultation bilaterally Cardio: COMMON NORMALS: regular rate, regular rhythm and No murmurs present (Cardio) RATE: regular rate RHYTHM: regular rhythm GI: COMMON NORMALS: Soft to palpation and No hepatosplenomegaly present A USCULTATION: Yes normoactive bowel sounds PALPATION: Yes Soft to palpation, No Tenderness to palpation present (GI), No Guarding due to palpation present (GI) and Yes No hepatosplenomegaly present Extremity: COMMON NORMALS: normal to inspection, capillary refill normal, no clubbing, cyanosis or edema, no calf tenderness and no pedal edema Neuro: SENSORIUM/ORIENTATION: Yes oriented to person, Yes oriented to place and Yes oriented to time Skin: COMMON NORMALS: no rashes or lesions noted GENERAL SKIN EXAM: no rashes or lesions noted Course 2 Vital Signs: Vital signs: Vital Signs Temperature 98 F 05/12/25 06:36 Pulse Rate 59 L 05/12/25 11:42 Respiratory Rate 16 05/12/25 09:19 Blood Pressure 166/80 05/12/25 11:42 Pulse Oximetry 98 05/12/25 11:42 Oxygen Delivery Me thod Room Air 05/12/25 09:19 MDM - Abdominal Pain Medical Decision Making Urine shows microscopic hematuria. Imaging shows mild dilation of the ureter but no definitive stone in the ureter. Given the patient's complaint of pain the nature and character of her pain as well as the location CT findings and the urine findings of hematuria suspect she did pass a kidney stone. She is completely resolved now she is her pain is gone she feels fine. Will discharge her home. Have her strain her urine to collect the stone if she has any worsening or recurrence of pain return follow-up with her primary care doctor. Medical Records I reviewed the patient's medical records. Lab Data I reviewed the patient's lab results. 05/12/25 06:44 05/12/25 06:44 Labs/Radiology: Radiology Impressions Abdomen/Pelvis CT 05/12/25 09:56 IMPRESSION: 1. Mild dilatation of the right renal collecting system. No obstructing calculus appreciated. Findings may represent urinary tract infection. 2. Atherosclerotic plaque of the abdominal vasculature. 3. Fibroid change of the uterus. 4. Postop surgical changes left hip joint. 5. Equivocal mild wall thickening of the stomach. Incomplete distension somewhat limits evaluation Laboratory Results WBC 8.58 10^3/uL (3.29-11.43) 05/12/25 06:44 RBC 4.93 10^6/uL (3.85-5.65) 05/12/25 06:44 Hgb 14.30 g/dL (11.27-16.99) 05/12/25 06:44 Hct 43.4 % (36-47) 05/12/25 06:44 MCV 88.0 fl (85-98) 05/12/25 06:44 MCH 29.0 pg (27-33) 05/12/25 06:44 MCHC 32.9 g/dL (30-55) 05/12/25 06:44 RDW 13.5 % (12.1-15.1) 05/12/25 06:44 Plt Count 258 10^3/cmm (157-399) 05/12/25 06:44 MPV 9.9 fL (7.4-10.4) 05/12/25 06:44 Neut % (Auto) 86.6 % 05/12/25 06:44 Lymph % (Auto) 7.8 % 05/12/25 06:44 [place] % (Auto) 3.8 % 05/12/25 06:44 Eos % (Auto) 0.7 % 05/12/25 06:44 Baso % (Auto) 0.6 % 05/12/25 06:44 Neut # (Auto) 7.43 10^3/uL (1.8-7.7) 05/12/25 06:44 Lymph # (Auto) 0.7 10^3/uL (0.8-4.8) L 05/12/25 06:44 [place] # (Auto) 0.3 10^3/uL (0.2-0.9) 05/12/25 06:44 Eos # (Auto) 0.1 10^3/uL (0.0-0.8) 05/12/25 06:44 Baso # (Auto) 0.1 10^3/uL (0.0-0.1) 05/12/25 06:44 Nucleated RBC % (auto) 0 % 05/12/25 06:44 Nucleated RBCs # 0.0 /100WBC 05/12/25 06:44 Sodium 141 mmol/L (136-145) 05/12/25 06:44 Potassium 4.2 mmol/L (3.5-5.1) 05/12/25 06:44 Chloride 104 mmol/L (98-107) 05/12/25 06:44 Carbon Dioxide 24 mmol/L (22-29) 05/12/25 06:44 Anion Gap 17.2 (5-19) 05/12/25 06:44 BUN 15 mg/dL (8-23) 05/12/25 06:44 Creatinine 0.6 mg/dL (0.5-0.9) 05/12/25 06:44 GFR Calculation 100.0 mL/min (90-130) 05/12/25 06:44 Glucose 162 mg/dL (65-115) H 05/12/25 06:44 Calculated Osmolality 296 mOsm/kg (285-295) H 05/12/25 06:44 Lactic Acid 1.1 mmol/L (0.5-2.2) 05/12/25 06:44 Calcium 9.9 mg/dL (8.5-10.5) 05/12/25 06:44 Total Bilirubin 0.8 mg/dL (0.15-1.2) 05/12/25 06:44 AST 12 U/L (0-32) 05/12/25 06:44 ALT 7 U/L (0-33) 05/12/25 06:44 Alkaline Phosphatase 102 U/L (35-105) 05/12/25 06:44 Total Protein 6.8 g/dL (6.6-8.7) 05/12/25 06:44 Albumin 4.5 g/dL (3.5-5.2) 05/12/25 06:44 Globulin 2.3 g/dL (1.3-4.6) 05/12/25 06:44 Lipase 37 U/L (13-60) 05/12/25 06:44 Urine Color Yellow (Yellow) 05/12/25 07:36 Urine Appearance Cloudy (CLEAR) A 05/12/25 07:36 Urine pH 5.5 (5-7) 05/12/25 07:36 Ur Specific [place] 1.018 (1.005-1.030) 05/12/25 07:36 Urine Protein Negative (Negative) 05/12/25 07:36 Urine Glucose (UA) Negative (Normal) 05/12/25 07:36 Urine Ketones Negative (Negative) 05/12/25 07:36 Urine Blood 3+ (Negative) A 05/12/25 07:36 Urine Nitrate Negative (Negative) 05/12/25 07:36 Urine Bilirubin Negative (Negative) 05/12/25 07:36 Urine Urobilinogen 1.0 mg/dL (Negative) 05/12/25 07:36 Ur Leukocyte Esterase Negative (Negative) 05/12/25 07:36 Urine RBC >100 /hpf (0-2) H 05/12/25 07:36 Urine WBC 0-4 /hpf (0-5) H 05/12/25 07:36 Ur Squamous Epith Cells 0-4 /hpf (0-5) H 05/12/25 07:36 Amorphous Sediment Not Reportable 05/12/25 07:36 Urine Bacteria Trace /hpf (NONE) 05/12/25 07:36 Hyaline Casts 0-4 /lpf H 05/12/25 07:36 Urine Mucus 3+ /hpf 05/12/25 07:36 All radiology interpretation(s) finalized by discharge Discharge Plan Discharge Patient Disposition: Home Clinical Impression: Calculus of kidney Condition: Stable Prescriptions: No Action lisinopril 40 mg tablet 40 mg PO DAILY cholecalciferol (vitamin D3) 250 mcg (10,000 unit) capsule 250 mcg PO DAILY tramadol 50 mg tablet 50 mg PO Q8H PRN (Reason: Pain) One-A-Day Women's 50 Plus 400 mcg-500 mg calcium-20 mcg Tablet 1 tab PO DAILY Discharge Orders: Discharge ED (Routine); Ordered 05/12/25 Ordered By: Zeferino Alexandra Referrals: Chloe Biswas MD [Family Provider, Neurology] Discharge Diet: Usual diet Discharge Activity: Resume usual activity Patient Instructions: Kidney Stones (ED), How to Strain Your Urine (ED), Opioid Safety, Pain Management, Patient Portal & Tre Instructions Activity Restrictions/Additional Instructions: Thank you for choosing [facility] for your healthcare needs today. It is very important that you follow up as instructed or that you return to the Emergency Department should you have concerns or if your condition changes or worsens in any way. Emergency department visits are focused on emergent conditions, in some cases you may require further evaluation on an outpatient basis. You were seen in the emergency room with complaint of right flank pain. Based on your laboratory studies and the CT findings it appears you have passed a kidney stone. Will have you strain your urine and follow-up with your primary care doctor. Return if you have worsening pain. (Please note that included in your discharge packet is information concerning opioid safety and pain management. This information is given to all patients were discharged from the ER regardless of their discharge diagnosis or the medicines they usually take or are prescribed.) Print Language: Sinhala Coding Level of Care Code ED Commissioning Editor for Herber Bautista
[2025-05-12 07:15] LABS: Lactic Sepsis W/Reflex 1.1 mmol/L (0.5-2.2)
[2025-05-12 07:16] LABS: Alanine Aminotransferase 7 U/L (0-33); Albumin Level 4.5 g/dL (3.5-5.2); Alkaline Phosphatase 102 U/L (35-105); Anion Gap 17.2 (5-19); Aspartate Amino Transferase 12 U/L (0-32); Blood Urea Nitrogen 15 mg/dL (8-23); Calcium 9.9 mg/dL (8.5-10.5); Carbon Dioxide 24 mmol/L (22-29); Chloride 104 mmol/L (98-107); Creatinine Clr Calc Pharmacy 70.5550; Globulin 2.3 g/dL (1.3-4.6); Glucose 162 mg/dL (65-115); Lipase 37 U/L (13-60); Osmolality Calculated 296 mOsm/kg (285-295); Potassium 4.2 mmol/L (3.5-5.1); Sodium 141 mmol/L (136-145); Total Protein 6.8 g/dL (6.6-8.7)
[2025-05-12 07:44] LABS: Glucose Urine UA Negative (Normal); Nitrate Urine Negative (Negative); Specific Gravity, Urine 1.018 (1.005-1.030)
[2025-05-12 08:00] LABS: Add Urine Microscopic? YES; UA Manual Slide Review YES
[2025-05-12 09:19] VITALS: BP 158/69; PULSE 70; RESP 16; O2SAT 98
--- NOTE | 2025-05-12 09:56 | CTR_ITS ---
PROCEDURE INFORMATION: Exam: CT Abdomen And Pelvis Without Contrast Exam date and time: 05/12/2025 10:06 AM Age: 64 years old Clinical indication: Abdominal pain; Flank; Right; Prior surgery; Surgery date: 6+ months; Surgery type: Hip; Additional info: Flank pain TECHNIQUE: Imaging protocol: Computed tomography of the abdomen and pelvis without contrast. Radiation optimization: All CT scans at this facility use at least one of these dose optimization techniques: automated exposure control; mA and/or kV adjustment per patient size (includes targeted exams where dose is matched to clinical indication); or iterative reconstruction. COMPARISON: No relevant prior studies available. RADIATION DOSE METRICS: Total DLP (mGy-cm): 624.88 FINDINGS: Liver: Normal. No mass. Gallbladder and biliary ducts: Normal. No calcified stones. No ductal dilation. Pancreas: Normal. No ductal dilation. Spleen: Normal. No splenomegaly. Adrenal glands: Normal. No mass. Kidneys and ureters: Mild dilatation of the right renal collecting system. No visible obstructing calculus is appreciated. Findings may be related to urinary tract infection Stomach and bowel: Equivocal mild wall thickening of the stomach. Incomplete distension somewhat limits evaluation. Appendix: No evidence of appendicitis. Intraperitoneal space: Unremarkable. No free air. No significant fluid collection. Vasculature: Atherosclerotic plaque of the abdominal vasculature. Lymph nodes: Unremarkable. No enlarged lymph nodes. Urinary bladder: Unremarkable as visualized. Reproductive: Unremarkable as visualized. Bones/joints: Degenerative change of the spine. Postop surgical change of the left hip joint. Soft tissues: Unremarkable. CT/CT kidney stone [id number] IMPRESSION: 1. Mild dilatation of the right renal collecting system. No obstructing calculus appreciated. Findings may represent urinary tract infection. 2. Atherosclerotic plaque of the abdominal vasculature. 3. Fibroid change of the uterus. 4. Postop surgical changes left hip joint. 5. Equivocal mild wall thickening of the stomach. Incomplete distension somewhat limits evaluation
[2025-05-12 11:42] VITALS: BP 166/80; PULSE 59; O2SAT 98
== END 2025-05-12 11:43 | disposition home or self-care (01) ==
PROVIDERS: Emergency Provider Family Medicine; Family Provider Specialist
DX: N20.0 Calculus of kidney (principal); F17.210 Nicotine dependence, cigarettes, uncomplicated
CPT/HCPCS: 74176; 80053; 81001; 83605; 83690; 85025; 87086; 96360; 99284; J7030